=== PATIENT | male | born 1940 | race Caucasian/White ===

== ENCOUNTER 2022-08-19 20:33 | Emergency (ER) | payer MEDICARE, OTHER ==
[~2022-08-19] VITALS: Ht 165.1 cm; Wt 68.0 kg
[2022-08-20] MEDS ORDERED: LIDOCAINE HCL/EPINEPHRINE 1%-EPI 1:100,000 20 ML VIAL INFIL ONE
[2022-08-20] MEDS ORDERED: VISCOUS LIDOCAINE 2% 15 ML UDC MM PRN
[2022-08-20] MEDS ORDERED: LIDOCAINE HCL/EPINEPHRINE 1%-EPI 1:100,000 20 ML VIAL INFIL NR (00:45)
[2022-08-20 02:00] VITALS: BP 137/68
== END 2022-08-20 02:50 | disposition home or self-care (01) ==
LOC: ER 20:33
DX: R04.0 Epistaxis (principal); I10 Essential (primary) hypertension
CPT/HCPCS: 30901; 99284; J3490